=== PATIENT | male | born 1945 | race Caucasian/White ===

== ENCOUNTER 2020-05-14 12:15 | Inpatient (IN) | payer OTHER ==
[~2020-05-14] VITALS: Ht 185.4 cm; Wt 117.0 kg
[~2020-05-14 12:15] MED LIST: PERCOCET; [UNRECOGNIZED DRUG - OTHER]
[2020-05-14] MEDS ORDERED: ALBU90OI INH (12:48)
[2020-05-14] MEDS ORDERED: FAMO20 PO (12:49)
[2020-05-14] MEDS ORDERED: AMOCLA875 PO (12:49)
[2020-05-14] MEDS ORDERED: GLIP5 PO (12:49)
[2020-05-14] MEDS ORDERED: LISI5 PO (12:50)
[2020-05-14 13:46] LABS: BASOPHILS ABSOLUTE AUTO 0.06 K/mm3 (0.00-0.23); BASOPHILS PERCENT AUTO 1 % (0-2); EOSINOPHILS ABSOLUTE AUTO 0.26 K/mm3 (0.00-0.68); EOSINOPHILS PERCENT AUTO 4 % (0-6); Hematocrit 44.9 % (37.0-53.0); Hemoglobin 14.8 g/dL (13.5-17.5); IMMATURE GRAN ABSOLUTE AUTO 0.02 K/mm3 (0.00-0.10); IMMATURE GRAN PERCENT AUTO 0 % (0-1); LYMPHOCYTES ABSOLUTE AUTO 1.67 K/mm3 (0.84-5.20); LYMPHOCYTES PERCENT AUTO 23 % (21-46); MONOCYTES ABSOLUTE AUTO 0.62 K/mm3 (0.16-1.47); MONOCYTES PERCENT AUTO 9 % (4-13); Mean Corpuscular HGB 31.1 pg (26.0-34.0); Mean Corpuscular Volume 94 fL (80-100); Mean Platelet Volume 10.2 fL (9.1-12.4); NEUTROPHILS ABSOLUTE AUTO 4.64 K/mm3 (1.96-9.15); NEUTROPHILS PERCENT AUTO 64 % (41-73); Platelet Count 199 K/mm3 (150-400); RDW Coefficient Variation 13.3 % (11.7-14.2); RDW Standard Deviation 45.9 fL (35.1-46.3); Red Blood Cell Count 4.76 M/mm3 (4.30-5.90); White Blood Cell Count 7.27 K/mm3 (4.00-11.30)
[2020-05-14 14:03] LABS: Alanine Aminotransfer (ALT/SGP 31 U/L (12-78); Albumin, Blood 3.4 g/dL (3.4-5.0); Alk Phos 78 U/L (50-136); Anion Gap 5 mmol/L (6-16); Aspartate Aminotrans (AST/SGOT 37 U/L (12-37); Blood Urea Nitrogen 14 mg/dL (8-24); Bun/Creatinine Ratio 16.4 (12.0-20.0); CO2, Blood 25 mmol/L (21-32); Calcium, Blood 8.7 mg/dL (8.5-10.1); Chloride, Blood 115 mmol/L (98-108); Creatinine, Blood 0.85 mg/dL (0.60-1.20); Globulin, Blood 3.4 g/dL (2.2-4.0); Glomerular Filtration Rate >60 (60-); Glucose, Blood 109 mg/dL (70-99); Magnesium, Blood 2.1 mg/dL (1.6-2.4); Potassium, Blood 4.7 mmol/L (3.5-5.5); Sodium, Blood 145 mmol/L (136-145); Total Protein, Blood 6.8 g/dL (6.4-8.2); Troponin I <0.015 ng/mL (0.000-0.040)
[2020-05-14 14:04] LABS: International Normalized Ratio 1.03
--- NOTE | 2020-05-14 16:51 | NUR ---
Echocardiogram completed.
[2020-05-15 00:44] LABS: Hematocrit 42.7 % (37.0-53.0); Hemoglobin 14.1 g/dL (13.5-17.5); Mean Corpuscular HGB 30.5 pg (26.0-34.0); Mean Corpuscular Volume 92 fL (80-100); Mean Platelet Volume 9.8 fL (9.1-12.4); Platelet Count 225 K/mm3 (150-400); RDW Coefficient Variation 13.2 % (11.7-14.2); RDW Standard Deviation 44.8 fL (35.1-46.3); Red Blood Cell Count 4.62 M/mm3 (4.30-5.90); White Blood Cell Count 7.56 K/mm3 (4.00-11.30)
[2020-05-15 01:00] LABS: Anion Gap 6 mmol/L (6-16); Blood Urea Nitrogen 17 mg/dL (8-24); Bun/Creatinine Ratio 15.7 (12.0-20.0); CO2, Blood 25 mmol/L (21-32); Calcium, Blood 8.7 mg/dL (8.5-10.1); Chloride, Blood 111 mmol/L (98-108); Creatinine, Blood 1.08 mg/dL (0.60-1.20); Glomerular Filtration Rate >60 (60-); Glucose, Blood 116 mg/dL (70-99); Potassium, Blood 3.9 mmol/L (3.5-5.5); Sodium, Blood 142 mmol/L (136-145)
--- NOTE | 2020-05-15 06:05 | NUR ---
SHIFT SUMMARY PT A&O X 4; PLEASANT & COMPLIANT W/ CARE; AT BEDSIDE; VSS; AFLUTTER NOTED ON TELE; HAS SYMPTOMATIC BRADYCARDIA EPISODES W/ HR LOW 25; PT STATES AT TIMES HE DOES FEEL A "WARM FLUSH" OR "SOMETHING COME OVER ME"; DR. RIZZO AT BEDSIDE THIS AM; PT DENIES NEEDS; CALL LIGHT IN REACH; BED IN LOWEST POSITION; WILL CONTINUE TO MONITOR CLOSELY UNTIL HAND OFF TO DAY SHIFT RN.
--- NOTE | 2020-05-15 08:54 | NUR ---
Etelvina gtt placed on hold for pacemaker this afternoon.
--- NOTE | 2020-05-15 09:37 | NUR ---
ASSUMED CARE OF PT, RECEIVED REPORT FROM JULIA OLIVAREZ. PT RESTING QUIETLY IN BED WITH TV ON AND SPOUSE AT BEDSIDE. PT TAKES PO MEDICATION WITHOUT DIFFICULTY. PT IS PENDING PACEMAKER PLACEMENT IN [facility] TODAY, UPDATED ON TIMEFRAME. PT DENIES FURTHER NEEDS, CALL LIGHT WITHIN REACH.
--- NOTE | 2020-05-15 13:16 | NUR ---
PT TO [facility] FOR PACEMAKER PLACEMENT
--- NOTE | 2020-05-15 15:06 | NUR ---
PT CONTINUES IN HEART CENTER
--- NOTE | 2020-05-15 18:37 | NUR ---
SHIFT SUMMARY: PT RETURNED FROM HEART CENTER AT APPROX 1600. DUAL CHAMBER PACEMAKER PLACED TO RIGHT CHEST WALL, RATE OF 60 BPM, PRESSURE DRESSING IN PLACE AND C/D/I. PT TOLERATES PROCEDURE WELL, MEDICATED PER EMAR W/TYLENOL FOR C/O HEADACHE REPORTS IMPROVEMENT OF SYMPTOMS. PT CONSUMES 100% OF DINNER TRAY. VS HAVE BEEN STABLE SO FAR. WILL CONTINUE TO MONITOR AND TREAT ACCORDINGLY UNTIL CHANGE OF SHIFT.
--- NOTE | 2020-05-16 06:03 | NUR ---
shift summary pt rested comfortably through night ao tele paced 60bpm 2lnc c/o some discomfort where pacemaker placed - tylenol x1, sling in place voiding to toilet no bm vss call light within reach, bed in lowest position. will continue to monitor.
--- NOTE | 2020-05-16 08:00 | NUR ---
pt laying in bed awake a/ox3, at bedside, is in good spirits this am, states he had a good night last night, is ready to get home after having a pacer placed yesterday. pressure dressing noted to right chest, no swelling redness or drainage to area. v.s. stable, states just a bit of discomfort to pacer site, but had tylenol this am. ice pack applied to area. call light in reach.
[2020-05-16] MEDS ORDERED: ELIQUIS5 MG PO (10:50)
--- NOTE | 2020-05-16 11:38 | NUR ---
PT HAS BEEN DISCHARGED TO HOME AFTER PACER WAS INTERRIGATED, AND CXR DONE. DR. LUTHER SAW HIM AND CHANGED THE DRESSING. IV REMOVED INTACT, WENT OVER ALL FOLLOW UP APPTS. AND INSTRUCTIONS. HE VERBALIZED UNDERSTANDING. NEW MEDICATION FAXED TO [facility]. LEFT VIA WHEELCHAIR WITH NURSE AND IN ATTENDENCE.
== END 2020-05-16 11:34 | disposition home or self-care (01) | DRG 242 ==
LOC: ER 12:15 → PCU 14:38
PROVIDERS: Emergency Medicine; Nurse Practitioner Acute Care; ADMIT Internal Medicine
PROC: 0JH806Z Insertion of Pacemaker, Dual Chamber into Abdomen Subcutaneous Tissue and Fascia, Open Approach (ICD-10-PCS; principal; 2020-05-15)
PROC: 02H63JZ Insertion of Pacemaker Lead into Right Atrium, Percutaneous Approach (ICD-10-PCS; 2020-05-15)
PROC: 02HK3JZ Insertion of Pacemaker Lead into Right Ventricle, Percutaneous Approach (ICD-10-PCS; 2020-05-15)
DX: I49.5 Sick sinus syndrome (principal); I50.31 Acute diastolic (congestive) heart failure; I48.11 Longstanding persistent atrial fibrillation; Z96.643 Presence of artificial hip joint, bilateral; Z96.651 Presence of right artificial knee joint; K21.9 Gastro-esophageal reflux disease without esophagitis; G47.33 Obstructive sleep apnea (adult) (pediatric); E66.01 Morbid (severe) obesity due to excess calories; E78.5 Hyperlipidemia, unspecified; Z68.32 Body mass index [BMI] 32.0-32.9, adult; J44.9 Chronic obstructive pulmonary disease, unspecified; E11.9 Type 2 diabetes mellitus without complications; I11.0 Hypertensive heart disease with heart failure; Z79.84 Long term (current) use of oral hypoglycemic drugs
CPT/HCPCS: 33208; 36415; 71045; 71046; 76937; 80048; 80053; 82947; 83735; 83880; 84145; 84443; 84484; 85025; 85027; 85610; 85730; 93005; 93010; 93306; 94762; 96365; 96366; 96375; 96376; 99152; 99153; 99285-25; A9270; A9270-GY; C1781; C1785; C1894; C1898; J0690; J1644; J1940; J2250; J2405; J3010; J7040; U0003